=== PATIENT | male | born 1985 | race Caucasian/White ===

== ENCOUNTER 2023-03-25 04:21 | Emergency (ER) | payer MEDICAID, SELFPAY ==
[2023-03-25] VITALS (69 sets, daily range): BP systolic 112–168; BP diastolic 56–97; PULSE 55–95; RESP 0–36; TEMP 36.8; O2SAT 82–100
--- NOTE | 2023-03-25 04:30 | RT.EKG_ITS ---
APPROVED REPORT Exam: Resting ECG Reason for Exam: substance abuse Patient Location: E HR:72 bpm ECG Measurements Heart Rate 72 AXIS OH 187 P 24 QRSd 99 QRS 50 QT 465 T 41 QTc 510 Conclusion Sinus rhythm...normal P axis, V-rate 60- 99 Prolonged QT interval...QTc >500mS
[2023-03-25 04:42] LABS: Abs Immature Grans 0.01 10^3/uL (0.0-0.06); Absolute Basophil Count 0.02 10^3/uL (0.0-0.2); Absolute Eosinophil Count 0.04 10^3/uL (0.0-0.7); Absolute Lymphocyte Count 1.81 10^3/uL (1.2-3.4); Absolute Neutrophil Count 3.19 10^3/uL (1.2-6.7); Basophils % 0.4; Eosinophils % 0.7; HCT 39.3 % (40.0-50.0); HGB 14.1 g/dL (13.5-17.5); Immature Grans % 0.2; Lymphocytes % 33.1; MCH 31.1 pg (27.0-33.0); MCHC 35.9 % (32.0-36.0); MCV 87 fL (80-95); MPV 9.6 fL (8.0-11.0); Monocytes % 7.3; Neutrophils % 58.3; Platelet Count 172 10^3/uL (130-400); RBC 4.54 10^6/uL (4.36-5.78); RDW 12.7 % (11.8-14.1); WBC 5.47 10^3/uL (4.4-10.8)
[2023-03-25] MEDS: Normal Saline 1,000 ML 1000 ML IV (04:45)
--- NOTE | 2023-03-25 04:48 | W.ED.GENAD ---
Discharge Plan Discharge Details Chief Complaint: Seizure ED Provider: Mai Cooley Home Meds and New Rx's Prescriptions: No Action No Known Home Meds Medical Decision Making I called and spoke to the patient's girlfriend Kamilla ([phone]). She states that the patient shot some Subutex and then took the same thing by mouth. He laid down and a short time later vomited up the pills. Following this he started kicking his legs and thrashing around. She said he was yelling and punching himself in the head. He was also flailing his arms and knocking pictures off the patiño. He evidently asked her to call 911. She says that he does not usually drink alcohol although she has only been with him for 7 to 10 days. She did say that he had 2 twisted teas this afternoon. HPI General Date/Time Provider Initiated Documentation: 03/25/23 04:31. HPI Narrative: This 37-year-old male patient was brought in by EMS after he had a possible seizure at home. The patient reportedly shot Subutex just [employer] as well as heroin this morning. EMS said the patient's girlfriend heard a noise in the other room and thought he might be having a seizure. The patient told his GF to call EMS and then told them he was having DTs. He initially refused to answer me but did after a sternal rub. He reports he has never had DTs before and does not drink much. He had no recall of the event in the ED. Related Data Home Medications Medication Instructions Recorded Confirmed Unknown [No Known Home Meds] 07/17/17 07/17/17 Allergies Allergy/AdvReac Type Severity Reaction Status Date / Time No Known Allergies Allergy Unverified 07/17/17 16:23 General Stated Complaint: Seizure MARCELA: 3 Review of Systems Unobtainable due to (uncooperative) Constitutional Constitutional: Reports as per HPI, Denies chills, Denies fever(s) and Denies headache(s) Eyes Eyes: Denies blurry vision and Reports other (no redness) ENT Ears, Nose, Mouth, and Throat: Denies dizziness, Denies otalgia, Denies headache(s), Denies nasal congestion, Denies nasal discharge, Denies neck pain and Denies odynophagia Cardiovascular Cardiovascular: Denies chest pain, Denies palpitations and Denies dyspnea Respiratory Respiratory: Denies cough and Denies dyspnea Gastrointestinal Gastrointestinal: Denies abdominal pain, Denies diarrhea, Denies nausea, Denies odynophagia and Denies vomiting Genitourinary Genitourinary: Denies difficulty urinating and Denies dysuria Musculoskeletal Musculoskeletal: Denies myalgias, Denies muscle weakness, Denies neck pain and Denies numbness Integumentary/Breasts Skin/Breast: Denies erythema and Denies rash Neurologic Neurologic: Denies dizziness, Denies headache(s) and Denies numbness Endocrine Endocrine: Denies palpitations [facility] Social History Smoking risk assessment performed?: No Substance use type: heroin Do you feel safe at home: Yes Do you feel safe in your relationship?: Yes Exam Const General: no acute distress, well developed, well groomed and not in acute distress Nutritional Appearance: well nourished Orientation: alert and oriented x3 HENTX Head: normocephalic and atraumatic Ears: external ears normal Mouth: oropharynx normal and moist mucous membranes Throat: posterior oropharynx normal Eyes Conjunctivae: conjunctivae normal Neck Neck: full ROM and supple Chest Chest: normal inspection of the chest Resp Effort & Inspection: normal respiratory effort Auscultation: clear to auscultation bilaterally Cardio Rate: regular rate Rhythm: regular rhythm Heart Sounds: no murmurs and no rubs GI Inspection: normal to inspection Palpation: soft, nontender and other (non distended) Auscultation: normal bowel sounds Skin General skin exam: no rashes or lesions noted and other (pink, warm, dry) Neuro General: patient alert, patient awake and patient oriented x3 Speech: speech normal Motor: other (PAN) Sensory Exam: no sensory deficits noted Extrem General: normal to inspection, full ROM and pedal edema present Psych Mental Status: mental status grossly normal Speech and Movement: speech and movement normal Affect: normal affect Course Vital Signs Vital signs: Vital Signs Temperature 36.8 C 03/25/23 04:18 Pulse 77 03/25/23 04:18 Respiratory Rate 23 03/25/23 04:18 Blood Pressure 133/72 03/25/23 04:18 Pulse Oximetry 99 03/25/23 04:18 Temperature 36.8 C 03/25/23 04:18 Pulse 77 03/25/23 04:18 Pulse 76 03/25/23 04:33 Respiratory Rate 26 H 03/25/23 04:33 Respiratory Effort Normal 03/25/23 04:24 Respiratory Depth Normal 03/25/23 04:24 Respiratory Pattern Normal 03/25/23 04:24 Blood Pressure 133/72 03/25/23 04:18 Blood Pressure Position Sitting 03/25/23 04:18 Pulse Oximetry 99 03/25/23 04:18 Oxygen Delivery Method Room Air 03/25/23 04:18 Oxygen Flow Rate 0 03/25/23 04:18
[2023-03-25 04:57] LABS: ALT 117 U/L (16-63); AST 84 U/L (15-37); Albumin 3.4 g/dL (3.4-5.0); Alkaline Phosphatase 74 U/L (46-116); Anion Gap 11.5 mmol/L (3-11); BUN 9 mg/dL (7-18); Bilirubin, Total 1.1 mg/dL (0.2-1.0); CO2 24.5 mmol/L (21.0-32.0); CREATININE 1.2 mg/dL (0.70-1.30); Calcium 9.5 mg/dL (8.5-10.1); Chloride 100 mmol/L (98-107); Estimated GFR 80.38 (mL/min/1.73m2); Glucose 108 mg/dL (74-106); Potassium 3.1 mmol/L (3.5-5.1); Sodium 136 mmol/L (136-145); Total Protein 8.6 g/dL (6.4-8.2)
[2023-03-25 05:01] LABS: Salicylate 2.9 mg/dL (<2.8)
[2023-03-25 05:02] LABS: ETHANOL BLOOD < 3.0 mg/dL (<10)
--- NOTE | 2023-03-25 05:05 | W.EDPROG ---
Date of service: 03/25/23 Time of Service: 06:00 Medical Decision Making Of note, pt. was tachypneic initially. He was startling and jittery intermittently and then c/o nausea. Zofran was not ordered due to prolonged QT. I elected to give him a SA Ativan for the startling as this would help the nausea as well. A short time after this he looked calm and quiet. I watched him for some time and told him to take some deep breaths, then sternal rubbed him as his sat was 92% and he seemed to be having some apneic spells. He awoke and told me he had taken subutex pills as well (as his GF had said). Of note, the orange pills she described probably were Subutex as I find many that color under pill ID. I suspect these are kicking in on top of the IV Subutex. Patient was seen in the ED in 2018 for opioid use disorder and depression. 0650: This patient was slightly total of 2 mg of IV Narcan. He has been reevaluated multiple times and seems to be breathing well with a sat of 100 percent. 0715: Case d/w Dr. Calix who will admit pt; no ICU bed at present. 0915: Sats good, breathing well, rouses easily, admitted. Medical Records Medical records reviewed: Yes I reviewed the patient's medical records. Imaging Data Radiologic Study: My impression: CXR: NAD Lab Data Lab results reviewed: Yes I reviewed the patient's lab results. Lab results narrative: AST 84, ALT 117, and potassium 3.1. Remainder of patient's labs were unremarkable. Labs: VBG looks OK; same done due to shallow breathing ECG Data Attestation: I personally reviewed and interpreted this ECG (s) as follows: (NSR 70, QT prolonged) Discharge Plan Disposition Patient Disposition: Against Medical Advice Condition: Stable Discharge Details Clinical Impression: Overdose of buprenorphine Primary Care Provider: Unknown,Unknown ED Provider: Mai Cooley Home Meds and New Rx's Prescriptions: No Action No Known Home Meds Discharge Instructions Additional Instructions: Follow up with PCP Discharge Data Discharge Date/Time-TO BE ENTERED AT DEPARTURE: 03/25/23 12:33 Discharge Physician: Buzz Calix
[2023-03-25 05:06] LABS: Acetaminophen < 2 ug/mL (10-30)
[2023-03-25] MEDS: LORazepam 2 MG/ML VIAL 1 MG IVP (06:00)
[2023-03-25] MEDS: Naloxone 0.4 MG/ML VIAL IVP ×2 (06:13→06:21)
--- NOTE | 2023-03-25 06:15 | DI.RAD_ITS ---
Exam(s) XR PORTABLE CHEST AP EXAM: XR PORTABLE CHEST AP CLINICAL HISTORY: vomiting, OD, tachypnea TECHNIQUE: 2D digital imaging was performed. COMPARISON: No exams were available for comparison FINDINGS: Leads overlie the chest. LUNGS: Clear. No pleural abnormality seen. HEART: Normal size. AORTA: Normal diameter. BONES: Unremarkable for age. Soft tissues: Unremarkable. IMPRESSION: No acute findings. DATA REPOSITORY: RADIATION DOSE DELIVERED:
[2023-03-25] MEDS: Potassium Chloride 20 MEQ TABCR PO (06:30)
[2023-03-25 06:40] LABS: BE (Venous) 4 mmol/L (-2-3); HCO3 (Venous) 28 mmol/L (23-28); O2 Sat (Venous) 59 %; TCO2 (Venous) 25 mmol/L (24-29); pCO2 (Venous) 37 mmHg (41-51); pH (Venous) 7.48 (7.31-7.41); pO2 (Venous) 29 mmHg
--- NOTE | 2023-03-25 06:47 | DI.VRAD_ITS ---
PROCEDURE INFORMATION: Exam: XR Chest Exam date and time: 03/25/2023 6:31 AM Age: 37 years old Clinical indication: Other: Vomiting, od, tachypnea TECHNIQUE: Imaging protocol: Radiologic exam of the chest. Views: 1 view. COMPARISON: No relevant prior studies available. FINDINGS: Lungs: No focal consolidation seen. Pleural spaces: No large pleural effusion seen. Heart/Mediastinum: No cardiomegaly. Bones/joints: Grossly unremarkable. IMPRESSION: No acute findings to explain reported symptoms. Dictated and Authenticated by: Radha Trent MD. Ordering:VALENCIA Oneill MD
[2023-03-25] MEDS: Naloxone 0.4 MG/ML VIAL 1.2 MG IVP (06:55)
--- NOTE | 2023-03-25 15:13 | W.PM.DS.N ---
Date of service: 03/25/23 Time of Service: 13:00 Discharge Plan Disposition Patient Disposition: Against Medical Advice Discharge Details Chief Complaint: Seizure Clinical Impression: Overdose of buprenorphine Primary Care Provider: Unknown,Unknown ED Provider: Mai Cooley Home Meds and New Rx's Prescriptions: No Action No Known Home Meds Discharge Instructions Additional Instructions: Follow up with PCP Discharge Data Discharge Physician: Buzz Calix DS: Summary Time Spent with Patient providing and/or coordinating discharge services: Less than 30 minutes Status at Discharge Functional status at discharge: independent ambulation Overall status at discharge: patient is progressing back to baseline Mental Status: mental status grossly normal Speech and Movement: speech and movement normal Mood: congruent mood Affect: normal affect Exam Psych Mental Status: mental status grossly normal Speech and Movement: speech and movement normal Mood: congruent mood Affect: normal affect DS: Data Vitals/I&O Vitals and I&O: Vital Signs Temperature 36.8 C 03/25/23 04:18 Pulse 56 L 03/25/23 10:46 Pulse 63 03/25/23 07:17 Respiratory Rate 0 L 03/25/23 07:50 Respiratory Effort Normal 03/25/23 04:24 Respiratory Depth Normal 03/25/23 04:24 Respiratory Pattern Normal 03/25/23 04:24 Blood Pressure 112/59 L 03/25/23 10:46 Blood Pressure Mean 75 03/25/23 10:46 Blood Pressure Position Sitting 03/25/23 04:18 Pulse Oximetry 99 03/25/23 11:00 Oxygen Delivery Method Room Air 03/25/23 04:18 Oxygen Flow Rate 0 03/25/23 04:18 Intake & Output 03/24/23 03/25/23 03/25/23 23:59 11:59 23:59 Intake Total 1000 / 1000 Balance 1000 / 1000 Intake: IV 1000 / 1000 Data Completed and Pending Labs on day of discharge: Labs from last 24 hours 03/25/23 03/25/23 03/25/23 06:36 04:25 04:25 WBC 5.47 RBC 4.54 Hgb 14.1 Hct 39.3 L MCV 87 MCH 31.1 MCHC 35.9 RDW 12.7 Plt Count 172 MPV 9.6 Immature Gran % 0.2 Neutrophils % 58.3 Lymphocytes % 33.1 Monocytes % 7.3 Eosinophils % 0.7 Basophils % 0.4 Nucleated RBC % 0.0 Absolute Neutrophils 3.19 Absolute Lymphocytes 1.81 Absolute Monocytes 0.40 Absolute Eosinophils 0.04 Absolute Basophils 0.02 VBG pH 7.48 H VBG pCO2 37 L VBG pO2 29 VBG HCO3 28 VBG Total CO2 25 VBG O2 Saturation 59 VBG Base Excess 4 H Sodium Potassium Chloride Carbon Dioxide Anion Gap BUN Creatinine Est GFR (CKD-EPI 2020) Glucose Calcium Total Bilirubin AST ALT Alkaline Phosphatase Total Protein Albumin Salicylates Acetaminophen < 2 Ethyl Alcohol 03/25/23 03/25/23 04:25 04:25 WBC RBC Hgb Hct MCV MCH MCHC RDW Plt Count MPV Immature Gran % Neutrophils % Lymphocytes % Monocytes % Eosinophils % Basophils % Nucleated RBC % Absolute Neutrophils Absolute Lymphocytes Absolute Monocytes Absolute Eosinophils Absolute Basophils VBG pH VBG pCO2 VBG pO2 VBG HCO3 VBG Total CO2 VBG O2 Saturation VBG Base Excess Sodium 136 Potassium 3.1 L Chloride 100 Carbon Dioxide 24.5 Anion Gap 11.5 H BUN 9 Creatinine 1.2 Est GFR (CKD-EPI 2020) 80.38 Glucose 108 H Calcium 9.5 Total Bilirubin 1.1 H AST 84 H ALT 117 H Alkaline Phosphatase 74 Total Protein 8.6 H Albumin 3.4 Salicylates 2.9 Acetaminophen Ethyl Alcohol < 3.0 PFSH All Active Problems (Updated 03/25/23 @ 15:15 by Sushila Veloz NP) Overdose of buprenorphine (Acute) Social History Smoking risk assessment performed?: No Substance use type: heroin Do you feel safe at home: Yes Do you feel safe in your relationship?: Yes Time Spent with Patient Time Spent with Patient: <45 minutes Time was spent: preparing to see the patient(eg.review tests) and ordering medications,tests, procedures
--- NOTE | 2023-03-25 21:35 | W.PM.DS.N ---
Date of service: 03/25/23 Time of Service: 12:40 DS: Diagnosis Discharge Diagnosis (1) Overdose of buprenorphine: Status: Acute Asessment and Plan: Patient is known user of buprenorphine and shot up and took oral form of Subutex (buprenorhpine) and possibly heeroin and his girlfriend called EMS when patient began kicking and thrashing his limbs about concerned that he may have been having a seizure. See ED provider's notes for details. Subsequent evaluation by ED provider found that him to be jittery and startling and tachypneic and complained of nausea. The ED provider gave him ativan to calm him down however the patient shortly afterwards became somnolent and bradypneic and shallow breathig and required narcan 2 mg. He was subsequently monitored and became more responsive but then required repeated doses of narcan. At that point the hospitalist was called to admit the patient. As there were no ICU beds available at the time, he was admitted to the ED w/ holding orders w/ prn narcan ordered along w/ continuous SPO2 and continuous ETCO2 monitoring and frequent vital signs. He received total of total of 2 mg narcan between 6:10 and 6:25 am (0.4 mg x 2 and 1.2 mg x one) and after admitted to ED department awaiting ICU bed he did not require any further narcan. Patient eventually signed himself out agains medical advice at 12:30 pm prior to evaluation by the hospitalist service. His vital signs were stable at the time of his departure and he was not hypoxemic and required no supplemental oxygenation Discharge Plan Disposition Patient Disposition: Against Medical Advice Condition: Stable Discharge Details Clinical Impression: Overdose of buprenorphine Primary Care Provider: Unknown,Unknown ED Provider: Mai Cooley Home Meds and New Rx's Prescriptions: No Action No Known Home Meds Discharge Instructions Additional Instructions: Follow up with PCP Discharge Data Discharge Date/Time-TO BE ENTERED AT DEPARTURE: 03/25/23 12:33 Discharge Physician: Buzz Calix DS: Summary Time Spent with Patient providing and/or coordinating discharge services: Less than 30 minutes Specific discharge activities: none Status at Discharge Functional status at discharge: independent ambulation Overall status at discharge: patient is back to baseline Mental Status: mental status grossly normal Speech and Movement: speech and movement normal Mood: congruent mood Affect: normal affect Exam Narrative Exam Narrative: no exam performed beyond that performed by ED provider Psych Mental Status: mental status grossly normal Speech and Movement: speech and movement normal Mood: congruent mood Affect: normal affect DS: Data Vitals/I&O Vitals and I&O: Vital Signs Temperature 36.8 C 03/25/23 04:18 Pulse 56 L 03/25/23 10:46 Pulse 63 03/25/23 07:17 Respiratory Rate 0 L 03/25/23 07:50 Respiratory Effort Normal 03/25/23 04:24 Respiratory Depth Normal 03/25/23 04:24 Respiratory Pattern Normal 03/25/23 04:24 Blood Pressure 112/59 L 03/25/23 10:46 Blood Pressure Mean 75 03/25/23 10:46 Blood Pressure Position Sitting 03/25/23 04:18 Pulse Oximetry 99 03/25/23 11:00 Oxygen Delivery Method Room Air 03/25/23 04:18 Oxygen Flow Rate 0 03/25/23 04:18 Intake & Output 03/24/23 03/25/23 03/25/23 23:59 11:59 23:59 Intake Total 1000 / 1000 Balance 1000 / 1000 Intake: IV 1000 / 1000 Data Completed and Pending Labs on day of discharge: Labs from last 24 hours 03/25/23 03/25/23 03/25/23 06:36 04:25 04:25 WBC 5.47 RBC 4.54 Hgb 14.1 Hct 39.3 L MCV 87 MCH 31.1 MCHC 35.9 RDW 12.7 Plt Count 172 MPV 9.6 Immature Gran % 0.2 Neutrophils % 58.3 Lymphocytes % 33.1 Monocytes % 7.3 Eosinophils % 0.7 Basophils % 0.4 Nucleated RBC % 0.0 Absolute Neutrophils 3.19 Absolute Lymphocytes 1.81 Absolute Monocytes 0.40 Absolute Eosinophils 0.04 Absolute Basophils 0.02 VBG pH 7.48 H VBG pCO2 37 L VBG pO2 29 VBG HCO3 28 VBG Total CO2 25 VBG O2 Saturation 59 VBG Base Excess 4 H Sodium Potassium Chloride Carbon Dioxide Anion Gap BUN Creatinine Est GFR (CKD-EPI 2020) Glucose Calcium Total Bilirubin AST ALT Alkaline Phosphatase Total Protein Albumin Salicylates Acetaminophen < 2 Ethyl Alcohol 03/25/23 03/25/23 04:25 04:25 WBC RBC Hgb Hct MCV MCH MCHC RDW Plt Count MPV Immature Gran % Neutrophils % Lymphocytes % Monocytes % Eosinophils % Basophils % Nucleated RBC % Absolute Neutrophils Absolute Lymphocytes Absolute Monocytes Absolute Eosinophils Absolute Basophils VBG pH VBG pCO2 VBG pO2 VBG HCO3 VBG Total CO2 VBG O2 Saturation VBG Base Excess Sodium 136 Potassium 3.1 L Chloride 100 Carbon Dioxide 24.5 Anion Gap 11.5 H BUN 9 Creatinine 1.2 Est GFR (CKD-EPI 2020) 80.38 Glucose 108 H Calcium 9.5 Total Bilirubin 1.1 H AST 84 H ALT 117 H Alkaline Phosphatase 74 Total Protein 8.6 H Albumin 3.4 Salicylates 2.9 Acetaminophen Ethyl Alcohol < 3.0 PFSH All Active Problems (Updated 03/25/23 @ 15:15 by Sushila Veloz NP) Overdose of buprenorphine (Acute) Social History Smoking risk assessment performed?: No Substance use type: heroin Do you feel safe at home: Yes Do you feel safe in your relationship?: Yes Time Spent with Patient Time Spent with Patient: <45 minutes Time was spent: other (completion of discharge summary)
--- NOTE | 2023-03-25 21:50 | HPE_ITS ---
Date of service: 03/25/23 Time of Service: 21:51 Assessment and Plan Assessment and plan (1) Overdose of buprenorphine: Status: Acute Assessment and plan: patient was treated w/ total of 2 mg narcan and monitored in the ED for a few hours and then signed himself out of the A.M.A. without every being admitted to the ICU. History of Present Illness History of Present Illness Chief Complaint: buprenorphine overdose Narrative: 37 yr old abuser of narcotics who puposefully took overdose of buprenorphine by ingestion and injection as well as use of heroin who was brought by EMS d/t agitation, myoclonus and was found to be overdosed on buprenorphine. See ED notes for details. Patient was admitted to the ED department awaiting ICU bed availabilty. He was treated by the ED provider w/ multiple doses of narcan. Patient stabilized before getting admitted to the ICU and signed himself out of the ED before being seen by the hospitalist. No exam was performed by the hospi talist. Review of Systems Unobtainable due to (not obtainable d/t patient left AMA before being seen) PFSH All Active Problems (Updated 03/25/23 @ 15:15 by Sushila Veloz NP) Overdose of buprenorphine (Acute) Social History Smoking risk assessment performed?: No Substance use type: heroin Do you feel safe at home: Yes Do you feel safe in your relationship?: Yes Meds Allergies and Home Medications Allergies Allergy/AdvReac Type Severity Reaction Status Date / Time No Known Allergies Allergy Unverified 07/17/17 16:23 Home Medications Medication Instructions Recorded Confirmed Type Unknown [No Known Home Meds] 07/17/17 07/17/17 History Exam Narrative Exam Narrative: no exam was done Results Labs 03/25/23 04:25 03/25/23 04:25 Labs: Laboratory Results - last 24 hr 03/25/23 03/25/23 03/25/23 04:25 04:25 04:25 WBC 5.47 RBC 4.54 Hgb 14.1 Hct 39.3 L MCV 87 MCH 31.1 MCHC 35.9 RDW 12.7 Plt Count 172 MPV 9.6 Immature Gran % 0.2 Neutrophils % 58.3 Lymphocytes % 33.1 Monocytes % 7.3 Eosinophils % 0.7 Basophils % 0.4 Nucleated RBC % 0.0 Absolute Neutrophils 3.19 Absolute Lymphocytes 1.81 Absolute Monocytes 0.40 Absolute Eosinophils 0.04 Absolute Basophils 0.02 VBG pH VBG pCO2 VBG pO2 VBG HCO3 VBG Total CO2 VBG O2 Saturation VBG Base Excess Sodium 136 Potassium 3.1 L Chloride 100 Carbon Dioxide 24.5 Anion Gap 11.5 H BUN 9 Creatinine 1.2 Est GFR (CKD-EPI 2020) 80.38 Glucose 108 H Calcium 9.5 Total Bilirubin 1.1 H AST 84 H ALT 117 H Alkaline Phosphatase 74 Total Protein 8.6 H Albumin 3.4 Salicylates 2.9 Acetaminophen Ethyl Alcohol < 3.0 03/25/23 03/25/23 04:25 06:36 WBC RBC Hgb Hct MCV MCH MCHC RDW Plt Count MPV Immature Gran % Neutrophils % Lymphocytes % Monocytes % Eosinophils % Basophils % Nucleated RBC % Absolute Neutrophils Absolute Lymphocytes Absolute Monocytes Absolute Eosinophils Absolute Basophils VBG pH 7.48 H VBG pCO2 37 L VBG pO2 29 VBG HCO3 28 VBG Total CO2 25 VBG O2 Saturation 59 VBG Base Excess 4 H Sodium Potassium Chloride Carbon Dioxide Anion Gap BUN Creatinine Est GFR (CKD-EPI 2020) Glucose Calcium Total Bilirubin AST ALT Alkaline Phosphatase Total Protein Albumin Salicylates Acetaminophen < 2 Ethyl Alcohol Last Vital Signs Temp 36.8 C 03/25/23 04:18 Pulse 56 L 03/25/23 10:46 Resp 0 L 03/25/23 07:50 BP 112/59 L 03/25/23 10:46 Pulse Ox 99 03/25/23 11:00 Time Spent Time spent with Patient: <40 minutes Time was spent: other (no charge, patient was never seen)
== END 2023-03-25 12:33 | disposition left against medical advice (07) ==
PROVIDERS: Emergency Provider Emergency Medicine
DX: T40.491A Poisoning by other synthetic narcotics, accidental (unintentional), initial encounter (principal); R06.82 Tachypnea, not elsewhere classified
CPT/HCPCS: 36415; 80053; 82805; 93005; 96374; 96375; 96376; 99283; 99284; 71045; 80320; 80329; 85025; 93010; J2060; J2310